=== PATIENT | male | born 1975 | race Caucasian/White ===

== ENCOUNTER 2020-12-11 12:53 | Emergency (ER) | payer OTHER ==
[~2020-12-11] VITALS: Ht 167.6 cm; Wt 68.0 kg
[2020-12-11 13:35] LABS: ABSOLUTE NEUTROPHILS 5.7 thou/uL (1.4-8.2); BASOPHILS 0.6 % (0.0-2.0); EOSINOPHILS 0.2 % (0.0-3.0); HEMOGLOBIN 13.3 gm/dL (14.0-18.0); LYMPHOCYTES 12.1 % (24.0-44.0); MCH 31.7 pg (26.0-34.0); MCHC 34.1 g/dL (28.0-37.0); MONOCYTES 7.4 % (1.0-8.0); PLATELET COUNT 103 thou/uL (150-400); POLYS 79.7 % (36.0-66.0); RBC 4.19 mil/uL (4.50-6.00); RDW 14.9 % (10.5-14.5); WBC 7.2 thou/uL (4.0-11.0)
[2020-12-11 13:44] LABS: URINE BILIRUBIN NEGATIVE (Negative); URINE BLOOD 1+ (Negative); URINE CLARITY CLEAR; URINE COLOR YELLOW; URINE GLUCOSE-RANDOM* 3+ (Negative); URINE KETONES NEGATIVE (Negative); URINE LEUKOCYTES-REFLEX NEGATIVE (Negative); URINE NITRITE-REFLEX NEGATIVE (Negative); URINE PROTEIN (DIPSTICK) NEGATIVE (Negative); URINE SPECIFIC GRAVITY <= 1.005 (1.005-1.035); URINE UROBILINOGEN 0.2 E.U./dl (0.2-1.0)
[2020-12-11 13:47] LABS: ANION GAP 18 mmol/L (7-16); BUN 11 mg/dL (7-18); CALCIUM 9.3 mg/dL (8.5-10.1); CHLORIDE 96 mmol/L (98-107); CO2 22 mmol/L (21-32); CREATININE 0.8 mg/dL (0.7-1.3); GLUCOSE 251 mg/dL (74-106); POTASSIUM 3.8 mmol/L (3.5-5.1); SODIUM 136 mmol/L (136-145)
[2020-12-11 13:53] LABS: DIRECT BILIRUBIN 0.2 mg/dL (<0.1-0.2); LIPASE 203 U/L (73-393); SGOT 366 U/L (15-37); SGPT 201 U/L (30-65); TOTAL BILIRUBIN 0.8 mg/dL (0.2-1.0); TOTAL PROTEIN 7.8 g/dL (6.4-8.2)
[2020-12-11 14:08] LABS: SALICYLATE < 2.8 mg/dL (2.8-20.0)
[2020-12-11 14:19] LABS: AMP/METHAMP Negative (Negative); BARBITURATES Negative (Negative); BENZODIAZEPINES Negative (Negative); COCAINE Negative (Negative); METHADONE Negative (Negative); OPIATES Negative (Negative); PCP Negative (Negative)
--- NOTE | 2020-12-11 14:35 | EKG ---
[address] [place] [address] ELECTROCARDIOGRAM REPORT Name: ESSIE CAPONE Room #: REG Kori#: [id number] Admission: 12/11/20 Attend Phys: Discharge: Date of : 79 Report #: [id number] [facility] ED Test Date: 2020-12-11 Test Time: 14:22:32 Pat Name: ESSIE CAPONE Department: Room: Gender: M Foreign Correspondent: : 1975 Requested By: Seth Ramirez Order Number: [id number] MD: Neo Markham Measurements Intervals [place] Rate: 98 P: 75 [place]: 156 QRS: 173 QRSD: 109 T: 26 QT: 392 QTc: 501 Interpretive Statements Sinus rhythm Right axis deviation No previous ECG available for comparison Electronically Signed On 12-11-2020 14:35:05 CDT by Neo Markham [email or web address] <ELECTRONICALLY SIGNED> By: Neo Markham MD, [facility] 12/11/20 1435 1422 1422 Neo Markham MD, FAC /EPI
[2020-12-11 14:41] LABS: SQUAMOUS None Seen /LPF (0-3)
[2020-12-11 14:42] LABS: BACTERIA-REFLEX None Seen /HPF (None Seen); URINE RBC 1-2 Rare /HPF (NONE SEEN); URINE WBC-REFLEX None Seen /HPF (0-5)
[2020-12-11 20:58] VITALS: BP 146/84
== END 2020-12-11 21:04 | disposition home or self-care (01) ==
LOC: ER 12:53
PROVIDERS: Student in an Organized Health Care Education/Training Program
DX: F10.229 Alcohol dependence with intoxication, unspecified (principal); Z20.822 Contact with and (suspected) exposure to COVID-19; Y90.9 Presence of alcohol in blood, level not specified; E11.9 Type 2 diabetes mellitus without complications; R56.9 Unspecified convulsions